=== PATIENT | female | born 1995 | race African-American/Black ===

== ENCOUNTER 2016-12-29 01:24 | Emergency (ER) | payer MEDICAID ==
[2016-12-29] MEDS ORDERED: Ibuprofen 600 MG TAB ONE (01:50)
--- NOTE | 2016-12-29 02:02 | ERRECORD ---
[facility] EMERGENCY RECORD HPI BACK CHIEF COMPLAINT: Patient presents for evaluation of pain, to the lower back. (01:51 LHOD) HISTORIAN: History provided by patient. (01:51 LHOD) MECHANISM OF INJURY: No apparent mechanism of injury. (01:57 LHOD) LOCATION: Radiation to the back. (01:57 LHOD) QUALITY: Pain is dull in nature, described as aching. (01:57 LHOD) SEVERITY: Maximum severity of pain rated as 7/10, Current severity of pain rated as 7/10, NO OBVIOUS DISTRESS WITH REPORT OF PAIN "7". (01:57 LHOD) TIME COURSE: PT REPORTS LOWER BACK PAIN BILATERAL LOWER BACK. REPORTS SHE STARTED A NEW JOB 3 DAYS AGO, THE NEXT DAY (TUESDAY) SHE HAD LOW BACK PAIN. NO ABDOMINAL PAIN, DYSURIA. NO SIGNIFICANT BACK PROBLEMS IN PAST. (01:51 LHOD) ASSOCIATED WITH: No associated abdominal pain, No associated bladder incontinence, No associated bowel incontinence, No associated dysuria, No associated fever, No associated inability to ambulate, No associated motor weakness, No associated numbness, No associated problems with urination, Associated with radiation of pain, to the left leg, to the right leg, No associated tingling. (01:51 LHOD) EXACERBATED BY: Patient's condition exacerbated by nothing. (01:51 LHOD) RELIEVED BY: Patient's condition relieved by nothing, Patient's condition relieved by PT HAS ONLY TRIED TYLENOL. (01:51 LHOD) ROS (01:53 LHOD) CONSTITUTIONAL: Historian denies fever. CARDIOVASCULAR: Historian denies chest pain, denies edema. RESPIRATORY: Historian denies shortness of breath. GI: Historian denies abdominal pain, denies nausea, denies vomiting. GENITOURINARY FEMALE: Historian denies dysuria, denies incontinence, denies . MUSCULOSKELETAL: Historian reports back pain, denies neck pain. SKIN: Historian denies rash. NEUROLOGIC: Historian denies headache. HEMO/LYMPHATIC: Historian denies easy bruising. NOTES: All systems reviewed, negative except as described above. PAST MEDICAL HISTORY MEDICAL HISTORY: No past medical history, Flu vaccine not up to date, Tetanus immunization up to date, Pneumococcal vaccine not up to date, Notes: VERIFIED 10-19-15, No past medical history, Flu vaccine not up to date, Tetanus immunization up to date, Pneumococcal vaccine not up to date, No past medical history, Flu vaccine not up to date, Tetanus immunization up to date, Pneumococcal vaccine not up to date, No past medical history,.09-28-15. (01:47 MCRS) FEMALE SURGICAL HISTORY: Patient has no surgical history, &a-1R&a+25V*p+0X*p7054W*c202B*c15G*c2P*p-0X&a-25V&a+1R Name: Maxime Albarado : 1995 F21 MedRec: [id number] AcctNum: [id number] Prepared: TueDec 29, 2016 02:22 by Interface Page 1 of 3 pMD [facility] EMERGENCY RECORD VERIFIED 10-19-15, Patient has no surgical history.09-28-15. (01:47 MCRS) PSYCHIATRIC HISTORY: Notes: DENIES, Notes: VERIFIED 10-19-15, Notes: Denies. 09-28-15. VERIFIED 12-29-16. (01:47 MCRS) SOCIAL HISTORY: Patient denies alcohol use, Patient denies drug use, Patient has no smoking history, Lives at home, with family, Social History includes VERIIED 10-19-15, Patient denies alcohol use, Patient denies drug use, Patient has no smoking history, Lives at home, with family, Patient denies alcohol use, Patient denies drug use, Patient has no smoking history, Lives at home, with family, 09-13-15. (01:47 MCRS) FAMILY HISTORY: No known family hisotry. (01:47 MCRS) NOTES: Nursing records reviewed, PT HAS BEEN SEEN BY ME PREVIOUSLY IN 2014 WHEN SHE HAD A BOX FALL ON HER LEG AT WORK, BUT IT CAUSED NO INJURY. PT MAY HAVE LOW PAIN TOLERANCE. (01:55 LHOD) KNOWN ALLERGIES ampicillin: Reaction: Hives, Severity: Mild, Source: Patient Penicillins: Reaction: Hives, Severity: Mild, Source: Patient Septra DS: Reaction: Rash, Severity: Mild, Source: Patient, - STARTED YESTERDAY Ultram: Reaction: Hives, Severity: Moderate, Source: Patient, - ITCHING 10-24 CALLED IN CURRENT MEDICATIONS (01:35 MCRS) None VITAL SIGNS VITAL SIGNS: BP: 121/72, Pulse: 72, Resp: 18, Temp: 97.4 (Tympanic), Pain: 7 (Burning), O2 sat: 97 on Room Air, Time: 12/29/2016 01:29. (01:29 MCRS) BP: 124/70, Pulse: 72, Resp: 18, Temp: 97.6, Pain: 6, O2 sat: 98 on RA, Time: 12/29/2016 02:15. (02:15 MCRS) PHYSICAL EXAM (01:54 LHOD) CONSTITUTIONAL: Vital Signs Reviewed, Patient afebrile, Pulse normal, Blood pressure normal, Respiratory rate normal, Patient appears non toxic, Patient alert and oriented to person, place and time, NO OBVIOUS DISTRESS. ABLE TO SIT, STAND AND LAY DOWN WITHOUT OBVIOUS PAIN OR STIFFNESS. ENT: Pharynx exam normal. NECK: Neck exam included findings of normal range of motion, Trachea midline. RESPIRATORY CHEST: Respiratory exam included findings of no respiratory distress, Breath sounds clear. CARDIOVASCULAR: Cardiovascular exam included findings of heart rate regular rate and rhythm, Heart sounds normal. ABDOMEN FEMALE: Abdominal exam included findings of abdomen nontender. &a-1R&a+25V*p+0X*o9045V*c202B*c15G*c2P*p-0X&a-25V&a+1R Name: Maxime Albarado : 1995 F21 MedRec: [id number] AcctNum: [id number] Prepared: TueDec 29, 2016 02:22 by Interface Page 2 of 3 pMD [facility] EMERGENCY RECORD BACK: Back exam included findings of normal inspection, range of motion normal, no tenderness, no pain with straight leg raise. UPPER EXTREMITY: Upper extremity exam normal. LOWER EXTREMITY: Lower extremity exam normal. NEURO: Speech normal, Gait normal. SKIN: no rash. MEDICATION ADMINISTRATION SUMMARY Drug Name: ibuprofen, Dose Ordered: 600 mg, Route: Oral, Status: Ordered, Time: 01:40 12/29/2016, Detailed record available in Medication Service section. PROBLEM LIST No recorded problems DIAGNOSIS (01:41 LHOD) FINAL: PRIMARY: LUMBAR STRAIN. PRESCRIPTION No recorded prescriptions DISPOSITION PATIENT: Disposition Type: Discharge, Disposition: *Discharge Home, Condition: Good. (01:41 LHOD) Disposition Transport: Car. (02:20 MCRS) Patient left the department. (02:20 MCRS) Mcallister: LHOD=MD Darrell, Claudio MCRS=BRUNO Mishra, Alejandro &a-1R&a+25V*p+0X*x1841H*c202B*c15G*c2P*p-0X&a-25V&a+1R Name: Maxime Albarado : 1995 F21 MedRec: [id number] AcctNum: [id number] Prepared: TueDec 29, 2016 02:22 by Interface Page 3 of 3 pMD MTDD
--- NOTE | 2016-12-29 02:03 | PICIS ---
[facility] EMERGENCY RECORD TRIAGE (01:33 MCRS) TRIAGE NOTES: LOWER BACK PAIN THAT RADIATES BILATERALLY DOWN BOTH LEGS X 3 DAYS. (01:33 MCRS) PATIENT: NAME: Maxime Albarado, AGE: 21, GENDER: female, : Tue1995, TIME OF GREET: TueDec 29, 2016 01:24, PREFERRED LANGUAGE: Swedish, ETHNICITY: Not or , FALL RISK: NO, ECODE BILLING MAP: [facility], SSN: [id number], Zip Code: [address], KG WEIGHT: 54.43, PHONE: , , , PERSON ID: [id number], PCP: NONE. (01:33 MCRS) COMPLAINT: BACK PAIN. (01:33 MCRS) ADMISSION: URGENCY: 4 Non Urgent, ADMISSION SOURCE: Home, TRANSPORT: CAR, BED: ED -03. (01:33 MCRS) ASSESSMENT: Assessment: COMPLAINT OF LOWER BACK PAIN WITH RADIATES DOWN BOTH LEGS, Symptoms began 3 DAYS AGO. (01:47 MCRS) PAIN: Patient complains of pain described as, burning, on a scale 0-10 patient rates pain as 7, Pain is constant, Aggravating factors:, Aggravating factors include UP ON FEET, No relieving factors. (01:47 MCRS) IMMUNIZATIONS: Flu vaccine not up to date, Tetanus immunization up to date, Pneumococcal vaccine not up to date. (01:47 MCRS) SIRS SCORING: Heart Rate 55-109 (0), Temp range 96.8-101.1 (0), respiratory rate 12-24 (0), Mental Status altered: no (0), Infection or Suspected Infection: No. (01:47 MCRS) TRIAGE SCREENING: Patient denies suicidal ideation, Patient denies presence of domestic violence. (01:47 MCRS) PROVIDERS: TRIAGE NURSE: Alejandro Mishra RN. (01:33 MCRS) VITAL SIGNS: BP 121/72, Pulse 72, Resp 18, Temp 97.4, (Tympanic), Pain 7, (Burning), O2 Sat 97, on Room Air, Time 12/29/2016 01:29. (01:29 MCRS) PREVIOUS VISIT ALLERGIES: Penicillins, Septra DS, Ultram. (01:33 MCRS) Penicillins, Septra DS, Ultram. (01:47 MCRS) KNOWN ALLERGIES ampicillin: Reaction: Hives, Severity: Mild, Source: Patient Penicillins: Reaction: Hives, Severity: Mild, Source: Patient Septra DS: Reaction: Rash, Severity: Mild, Source: Patient, - STARTED YESTERDAY Ultram: Reaction: Hives, Severity: Moderate, Source: Patient, - ITCHING 10-24 CALLED IN CURRENT MEDICATIONS (01:35 MCRS) None VITAL SIGNS VITAL SIGNS: BP: 121/72, Pulse: 72, Resp: 18, Temp: 97.4 (Tympanic), Pain: 7 (Burning), O2 sat: 97 on Room Air, Time: 12/29/2016 01:29. (01:29 MCRS) &a-1R&a+25V*p+0X*n7875W*c202B*c15G*c2P*p-0X&a-25V&a+1R Name: AlbaradoRolando ramirezjudy Burton : 1995 F21 MedRec: [id number] AcctNum: [id number] Prepared: TueDec 29, 2016 02:29 by Interface Page 1 of 5 pMD [facility] EMERGENCY RECORD BP: 124/70, Pulse: 72, Resp: 18, Temp: 97.6, Pain: 6, O2 sat: 98 on RA, Time: 12/29/2016 02:15. (02:15 MCRS) NURSING ASSESSMENT: BACK (01:45 MCRS) CONSTITUTIONAL: Patient arrives ambulatory, Gait steady, History obtained from patient, Patient appears comfortable, Patient cooperative, Patient alert, Oriented to person, place and time, Skin warm, Skin dry, Skin normal in color, Mucous membranes pink, Mucous membranes moist, Patient is well-groomed, Patient complains of BACK PAIN THAT RADIATES DOWN LEGS. PAIN: burning pain, to the lower back, Pain radiates, to bilateral legs, Onset of pain 3 DAYS AGO, on a scale 0-10 patient rates pain as 7, Pain exacerbated by, ambulation, Nothing has been tried to alleviate the pain. NONVERBAL PAIN: Notes: NO OUTWARD SIGN OF PAIN. BACK: Back assessment findings include tenderness to, bilateral lower back, Right radial pulse +3(easily palpated, considered normal), Left radial pulse +3(easily palpated, considered normal), Left dorsalis pedis pulse +3(easily palpated, considered normal), Right dorsalis pedis pulse +3(easily palpated, considered normal). NURSING PROCEDURE: DISCHARGE NOTE (02:15 MCRS) DISCHARGE: Patient discharged to home, ambulating without assistance, driving self, accompanied by other family member, Summary of Care printed/ provided, Patient requested and was provided an electronic copy of Discharge Instructions, Transition record given to patient, Discharge instructions given to patient, Simple or moderate discharge teaching performed, discharge instructions, Medication reconciliation form given, and reviewed with see list, Above person(s) verbalized understanding of discharge instructions and follow-up care, Patient treated and evaluated by physician. BELONGINGS: Valuables remain with patient. VITAL SIGNS: BP: 124, / 70, Pulse: 72, Resp: 18, Temp: 97.6, Pain: 6, O2 sat: 98, on: RA. MEDICATION ADMINISTRATION SUMMARY Drug Name: ibuprofen, Dose Ordered: 600 mg, Route: Oral, Status: Ordered, Time: 01:40 12/29/2016, Detailed record available in Medication Service section. MEDICATION SERVICE ibuprofen: Order: ibuprofen - Dose: 600 mg : Oral Ordered by: Claudio Ramírez MD Entered by: Claudio Ramírez MD TueDec 29, 2016 01:40 , Acknowledged by: Alejandro Mishra RN TueDec 29, 2016 01:49. : Follow Up : Response assessment performed, No signs or symptoms of allergic reaction noted, Decreased pain. (02:15 &a-1R&a+25V*p+0X*n1896D*c202B*c15G*c2P*p-0X&a-25V&a+1R Name: Maxime Albarado : 1995 F21 MedRec: [id number] AcctNum: [id number] Prepared: TueDec 29, 2016 02:29 by Interface Page 2 of 5 pMD [facility] EMERGENCY RECORD MCRS) HPI BACK CHIEF COMPLAINT: Patient presents for evaluation of pain, to the lower back. (01:51 LHOD) HISTORIAN: History provided by patient. (01:51 LHOD) MECHANISM OF INJURY: No apparent mechanism of injury. (01:57 LHOD) LOCATION: Radiation to the back. (01:57 LHOD) QUALITY: Pain is dull in nature, described as aching. (01:57 LHOD) SEVERITY: Maximum severity of pain rated as 7/10, Current severity of pain rated as 7/10, NO OBVIOUS DISTRESS WITH REPORT OF PAIN "7". (01:57 LHOD) TIME COURSE: PT REPORTS LOWER BACK PAIN BILATERAL LOWER BACK. REPORTS SHE STARTED A NEW JOB 3 DAYS AGO, THE NEXT DAY (TUESDAY) SHE HAD LOW BACK PAIN. NO ABDOMINAL PAIN, DYSURIA. NO SIGNIFICANT BACK PROBLEMS IN PAST. (01:51 LHOD) ASSOCIATED WITH: No associated abdominal pain, No associated bladder incontinence, No associated bowel incontinence, No associated dysuria, No associated fever, No associated inability to ambulate, No associated motor weakness, No associated numbness, No associated problems with urination, Associated with radiation of pain, to the left leg, to the right leg, No associated tingling. (01:51 LHOD) EXACERBATED BY: Patient's condition exacerbated by nothing. (01:51 LHOD) RELIEVED BY: Patient's condition relieved by nothing, Patient's condition relieved by PT HAS ONLY TRIED TYLENOL. (01:51 LHOD) ROS (01:53 LHOD) CONSTITUTIONAL: Historian denies fever. CARDIOVASCULAR: Historian denies chest pain, denies edema. RESPIRATORY: Historian denies shortness of breath. GI: Historian denies abdominal pain, denies nausea, denies vomiting. GENITOURINARY FEMALE: Historian denies dysuria, denies incontinence, denies . MUSCULOSKELETAL: Historian reports back pain, denies neck pain. SKIN: Historian denies rash. NEUROLOGIC: Historian denies headache. HEMO/LYMPHATIC: Historian denies easy bruising. NOTES: All systems reviewed, negative except as described above. PAST MEDICAL HISTORY MEDICAL HISTORY: No past medical history, Flu vaccine not up to date, Tetanus immunization up to date, Pneumococcal vaccine not up to date, Notes: VERIFIED 10-19-15, No past medical history, Flu vaccine not up to date, Tetanus immunization up to date, Pneumococcal vaccine not up to date, No past medical history, Flu vaccine not up to date, Tetanus immunization up to date, Pneumococcal vaccine not up to date, No past medical &a-1R&a+25V*p+0X*w7978I*c202B*c15G*c2P*p-0X&a-25V&a+1R Name: Maxime Albarado : 1995 F21 MedRec: [id number] AcctNum: [id number] Prepared: TueDec 29, 2016 02:29 by Interface Page 3 of 5 pMD [facility] EMERGENCY RECORD history,.09-28-15. (01:47 MCRS) FEMALE SURGICAL HISTORY: Patient has no surgical history, VERIFIED 10-19-15, Patient has no surgical history.09-28-15. (01:47 MCRS) PSYCHIATRIC HISTORY: Notes: DENIES, Notes: VERIFIED 10-19-15, Notes: Denies. 09-28-15. VERIFIED 12-29-16. (01:47 MCRS) SOCIAL HISTORY: Patient denies alcohol use, Patient denies drug use, Patient has no smoking history, Lives at home, with family, Social History includes VERIIED 10-19-15, Patient denies alcohol use, Patient denies drug use, Patient has no smoking history, Lives at home, with family, Patient denies alcohol use, Patient denies drug use, Patient has no smoking history, Lives at home, with family, 09-13-15. (01:47 MCRS) FAMILY HISTORY: No known family hisotry. (01:47 MCRS) NOTES: Nursing records reviewed, PT HAS BEEN SEEN BY ME PREVIOUSLY IN 2014 WHEN SHE HAD A BOX FALL ON HER LEG AT WORK, BUT IT CAUSED NO INJURY. PT MAY HAVE LOW PAIN TOLERANCE. (01:55 LHOD) PHYSICAL EXAM (01:54 LHOD) CONSTITUTIONAL: Vital Signs Reviewed, Patient afebrile, Pulse normal, Blood pressure normal, Respiratory rate normal, Patient appears non toxic, Patient alert and oriented to person, place and time, NO OBVIOUS DISTRESS. ABLE TO SIT, STAND AND LAY DOWN WITHOUT OBVIOUS PAIN OR STIFFNESS. ENT: Pharynx exam normal. NECK: Neck exam included findings of normal range of motion, Trachea midline. RESPIRATORY CHEST: Respiratory exam included findings of no respiratory distress, Breath sounds clear. CARDIOVASCULAR: Cardiovascular exam included findings of heart rate regular rate and rhythm, Heart sounds normal. ABDOMEN FEMALE: Abdominal exam included findings of abdomen nontender. BACK: Back exam included findings of normal inspection, range of motion normal, no tenderness, no pain with straight leg raise. UPPER EXTREMITY: Upper extremity exam normal. LOWER EXTREMITY: Lower extremity exam normal. NEURO: Speech normal, Gait normal. SKIN: no rash. EVENTS TRANSFER: Triage to Emergency Main ED -03. (TueDec 29, 2016 01:33 MCRS) Removed from Emergency Main ED -03. (02:20 MCRS) PROBLEM LIST No recorded problems DIAGNOSIS (01:41 LHOD) &a-1R&a+25V*p+0X*u1276D*c202B*c15G*c2P*p-0X&a-25V&a+1R Name: Rolando Albaradojudy Burton : 1995 F21 MedRec: [id number] AcctNum: [id number] Prepared: TueDec 29, 2016 02:29 by Interface Page 4 of 5 pMD [facility] EMERGENCY RECORD FINAL: PRIMARY: LUMBAR STRAIN. DISPOSITION PATIENT: Disposition Type: Discharge, Disposition: *Discharge Home, Condition: Good. (01:41 LHOD) Disposition Transport: Car. (02:20 MCRS) Patient left the department. (02:20 MCRS) INSTRUCTION (01:42 LHOD) DISCHARGE: LOW BACK PAIN GENERAL. FOLLOWUP: Follow up with Primary Care Physician as needed. SPECIAL: IBUPROFEN 600 MG EVERY 6 HOURS TOLERATED. MOIST HEAT. *RETURN IF WORSE Follow-up with your PCP. PRESCRIPTION No recorded prescriptions IMAGING (02:17 MCRS) WORK/SCHOOL RELEASE: Image captured from scanner. *SUPPLY CHARGE SHEET: Image captured from scanner. *DISCHARGE INSTRUCTIONS RECEIPT: Image captured from scanner. ADMIN (01:58 LHOD) DIGITAL SIGNATURE: MD Ramírez Lefayne. Mcallister: LHOD=MD Ramírez Lefayne MCRS=BRUNO Mishra, Alejandro &a-1R&a+25V*p+0X*m0266Y*c202B*c15G*c2P*p-0X&a-25V&a+1R Name: Albarado Billasher Burton : 1995 F21 MedRec: [id number] AcctNum: [id number] Prepared: TueDec 29, 2016 02:29 by Interface Page 5 of 5 pMD MTDD
== END 2016-12-29 02:15 | disposition home or self-care (01) ==
LOC: MADERS 01:24
DX: S39.012A Strain of muscle, fascia and tendon of lower back, initial encounter (principal); X58.XXXA Exposure to other specified factors, initial encounter
CPT/HCPCS: 99283

== ENCOUNTER 2017-03-10 23:42 | Emergency (ER) | payer MEDICAID, SELFPAY ==
[2017-03-11] MEDS ORDERED: HYDROcodone/Acetaminophen 10/325 mg Tablet ONE (01:36)
[2017-03-11] MEDS ORDERED: Azithromycin 250 MG TAB ONE (01:37)
[2017-03-11] MEDS ORDERED: Naproxen 500 MG TAB ONE (01:37)
[2017-03-11] MEDS ORDERED: Phenergan/Codeine 10-6.25mg/5ml UDCUP ONE (01:37)
== END 2017-03-11 01:58 | disposition home or self-care (01) ==
LOC: MADERS 23:42
DX: J20.9 Acute bronchitis, unspecified (principal)
CPT/HCPCS: 99283

== ENCOUNTER 2017-05-20 16:03 | Emergency (ER) | payer SELFPAY ==
[2017-05-20 16:40] LABS: Clarity Cloudy (Clear); Pregnancy Test - Urine (BHCG) Negative (Negative); Pregu Control Background? CLEAR/WHITE (CLR/WHITE); Pregu Control Bar Appear? YES (CONTROL BAR)
[2017-05-20 16:41] LABS: Bacteria/HPF 3+ HPF (None Seen); Bilirubin Negative (Negative); Blood, Urine Trace (Negative); Glucose, Urine (Dipstick) Negative (Negative); Leukocyte Moderate (Negative); Nitrite Positive (Negative); Other Microscopic Description C&S SET UP; Protein, Urine (Dipstick) Trace mg/dL (Neg-Trace); RBC/HPF 0-3 HPF (0-3); Squamous Epithelial 0-3 HPF (0-3)
[2017-05-20] MEDS ORDERED: Nitrofurantoin Monohyd/M-Cryst 100 MG CAP ONE (16:46)
[2017-05-20] MEDS ORDERED: Phenazopyridine HCl 97.5 MG TABLET ONE (16:46)
== END 2017-05-20 16:55 | disposition home or self-care (01) ==
LOC: MADERS 16:03
DX: N39.0 Urinary tract infection, site not specified (principal)
CPT/HCPCS: 81001; 81025; 87077; 87086; 87186; 99283

== ENCOUNTER 2017-08-04 19:15 | Emergency (ER) | payer MEDICAID, OTHER | END 2017-08-04 19:45 | disposition home or self-care (01) | LOC: MADERS 19:15 | DX: J02.9 Acute pharyngitis, unspecified (principal) | CPT/HCPCS: 99282 ==

== ENCOUNTER 2018-11-08 00:29 | Emergency (ER) | payer OTHER | END 2018-11-08 00:45 | disposition home or self-care (01) | LOC: MADERS 00:29 | DX: R06.02 Shortness of breath (principal) | CPT/HCPCS: 99284 ==

== ENCOUNTER 2019-03-10 23:31 | Emergency (ER) | payer OTHER ==
[2019-03-10] MEDS ORDERED: Phenazopyridine HCl 97.5 MG TABLET ONE (23:53)
[2019-03-10] MEDS ORDERED: Nitrofurantoin Monohyd/M-Cryst 100 MG CAP ONE (23:53)
[2019-03-10 23:54] LABS: Bilirubin Negative (Negative); Blood, Urine Trace (Negative); Glucose, Urine (Dipstick) Negative (Negative); Leukocyte Small (Negative); Nitrite Negative (Negative); Pregnancy Test - Urine (BHCG) Negative (Negative); Pregu Control Background? CLEAR/WHITE (CLR/WHITE); Pregu Control Bar Appear? YES (CONTROL BAR); Protein, Urine (Dipstick) Negative (Neg-Trace); Specific Gravity 1.025 (1.002-1.036); Specific Gravity, Urine 1.025 (1.005-1.030)
[2019-03-10 23:55] LABS: Clarity Hazy (Clear)
[2019-03-10 23:58] LABS: Bacteria/HPF Rare-Few HPF (None Seen)
== END 2019-03-10 23:59 | disposition home or self-care (01) ==
LOC: MADERS 23:31
DX: N30.90 Cystitis, unspecified without hematuria (principal); J45.909 Unspecified asthma, uncomplicated
CPT/HCPCS: 81003; 81015; 81025; 99283

== ENCOUNTER 2019-05-24 13:52 | Emergency (ER) | payer OTHER | END 2019-05-24 14:42 | disposition home or self-care (01) | LOC: MADERS 13:52 | DX: M79.671 Pain in right foot (principal); J45.909 Unspecified asthma, uncomplicated; W22.09XA Striking against other stationary object, initial encounter | CPT/HCPCS: 99283 ==

== ENCOUNTER 2019-07-18 05:28 | Emergency (ER) | payer OTHER | END 2019-07-18 06:15 | disposition home or self-care (01) | LOC: MADERS 05:28 | DX: J45.901 Unspecified asthma with (acute) exacerbation (principal) | CPT/HCPCS: 99284 ==